=== PATIENT | female | born 1950 | race Caucasian/White ===

== ENCOUNTER 2019-06-21 09:30 | Outpatient (CLI) | payer MEDICARE, BC, SELFPAY ==
--- NOTE | ~2019-06-21 | XR_ITS ---
EXAMINATION: XR abdomen/kub 1V INDICATION: History of kidney stones TECHNIQUE: Supine views of the abdomen were obtained on 2 radiographs. COMPARISON: 03/01/2019 FINDINGS: No definite urinary tract calculi are identified. The bowel gas pattern is normal. Surgical clips in the right upper quadrant are likely from prior cholecystectomy. There is moderate lumbar sp ondylosis. IMPRESSION: 1. No definite urinary tract calculi identified. Reviewed, dictated and finalized at location A. 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
== END 2019-06-21 09:31 | disposition home or self-care (01) ==
PROVIDERS: PCP Internal Medicine; Visit Provider Urology
DX: Z87.442 Personal history of urinary calculi (principal)
CPT/HCPCS: 74018

== ENCOUNTER 2019-10-13 09:58 | Outpatient (CLI) | payer MEDICARE, BC, SELFPAY ==
--- NOTE | ~2019-10-13 | CT_ITS ---
EXAMINATION: CT abdomen pelvis wo con DATE: 10/13/2019 11:14 INDICATION: Left flank pain. TECHNIQUE: Computed tomography (CT) of the abdomen and pelvis was performed without intravenous contr ast. Automated exposure control and iterative reconstruction technique were employed. The dose-length product was 775.50 mGy-cm. COMPARISON: None. FINDINGS: The visualized portions of the lung bases are clear without pneumonia or pleural effusion. The heart size is normal. No pericardial effusion. There is diffuse hepatic steatosis. There are vasquez ges of cholecystectomy. The spleen is normal. 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 The adrenal glands are normal. There is a 3 mm stone in right kidney. There is a 3. 6 cm cyst in left kidney. There is a 3 mm stone in left kidney. There are scattered diverticula in th e colon. There is fat stranding adjacent to the sigmoid colon, consistent with diverticulitis. There are no dilated loops of bowel. The appendix is normal. There are no pathologically enlarged lymph nod es. There is no free intraperitoneal fluid. There is severe lumbar spondylosis. Thoracolumbar dextroc urvature is noted. IMPRESSION: 1. Mild sigmoid diverticulitis. No perforation or abscess. 2. Small bilateral nonobstructing kidney stones. Reviewed, dictated and finalized at location A.
--- NOTE | ~2019-10-13 | XR_ITS ---
EXAMINATION: XR abdomen/kub 1V DATE: 10/13/2019 11:05 INDICATION: Acute flank pain. TECHNIQUE: A supine view of the abdomen on 2 radiographs was obtained. COMPARISON: CT abdomen and pelvis 10/13/2019 FINDINGS: There are no dilated loops of bowel. There is no visible urolithiasis. Surgical clips in th e right upper quadrant are likely from cholecystectomy. IMPRESSION: 1. No visible urolithiasis. Reviewed, dictated and finalized at location A. IMPRESSION: 1. No visible urolithiasis.
== END 2019-10-13 09:59 | disposition home or self-care (01) ==
LOC: ANHIMG 10:01
PROVIDERS: PCP Internal Medicine; Visit Provider Nurse Practitioner Adult Health
DX: K57.32 Diverticulitis of large intestine without perforation or abscess without bleeding (principal); N20.0 Calculus of kidney
CPT/HCPCS: 74018; 74176; 87086; 87088

== ENCOUNTER 2021-03-25 07:28 | Outpatient (CLI) | payer MEDICARE, BC, SELFPAY ==
--- NOTE | ~2021-03-25 | MR_ITS ---
EXAMINATION: MR lumbar spine wo con EXAM DATE: 03/25/2021 08:38 INDICATION: Low back pain. TECHNIQUE: Multi-sequential, multiplanar MR images of the lumbar spine were obtained without contrast . Sagittal T1, T2, T2 fat saturation images. Axial T2 weighted images. There is no prior study for comparison. FINDINGS: Mild thoracolumbar dextroscoliosis, lumbar levoscoliosis. There is moderate to severe disc disease L2-3 and L3-4, moderate at L1-2 and L4-5. The conus medullaris terminates at the L1 level and has normal signal intensity and morphology. There is 2 mm retrolisthesis L2 on L3, 4 mm retrolisthe sis L3 on L4. There is 3.8 cm cyst in the lower pole of the left kidney. Level by level evaluation: T12-L1: There is a mild to moderate diffuse disc bulge. Facet arthropathy: Mild. Neural foraminal stenosis: Mild to moderate left. Central canal stenosis: Minimal. L1-L2: There is a mild diffuse disc bulge. Facet arthropathy: Mild. Neural foraminal stenosis: Mild bilateral. Central canal stenosis: Mild. L2-L3: There is a mild to moderate diffuse disc bulge. Facet arthropathy: Moderate right, mild to moderate left. Neural foraminal stenosis: Moderate right, mild to moderate left. Central canal stenosis: Mild to moderate. L3-L4: There is a mild to moderate diffuse disc bulge. Facet arthropathy: Moderate. Neural foraminal stenosis: Moderate right, mild to moderate left. Central canal stenosis: Mild to moderate. L4-L5: There is a mild to moderate diffuse disc bulge. Facet arthropathy: Moderate bilateral. Neural foraminal stenosis: Moderate right, minimal left. Central canal stenosis: Mild. L5-S1: There is a mild diffuse disc bulge. Facet arthropathy: Severe. Neural foraminal stenosis: Mild to moderate left, mild right. Central canal stenosis: Mild. IMPRESSION: 1. L2-L4 moderate to severe disc disease. 2. Mid and lower cervical predominant arthropathy. Reviewed, dictated and finalized at location A. 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
== END 2021-03-25 07:29 | disposition home or self-care (01) ==
LOC: ANHIMG 07:36
PROVIDERS: PCP Internal Medicine; Visit Provider Nurse Practitioner Adult Health
DX: M47.815 Spondylosis without myelopathy or radiculopathy, thoracolumbar region (principal); M48.05 Spinal stenosis, thoracolumbar region; M47.817 Spondylosis without myelopathy or radiculopathy, lumbosacral region; M48.07 Spinal stenosis, lumbosacral region
CPT/HCPCS: 72148

== ENCOUNTER 2022-01-16 10:55 | Outpatient (CLI) | payer MEDICARE, BC, SELFPAY ==
--- NOTE | ~2022-01-16 | CT_ITS ---
EXAMINATION: CT abdomen pelvis wo con DATE: 01/16/2022 11:50 INDICATION: Bilateral flank pain. Bilateral kidney stones. TECHNIQUE: Computed tomography (CT) of the abdomen and pelvis was performed without intravenous contr ast. Automated exposure control and iterative reconstruction technique were employed. The dose-length product was 922.30 mGy-cm. COMPARISON: CT abdomen and pelvis 10/13/2019 FINDINGS: The visualized portions of the lung bases demonstrate mild atelectasis. No pleural effusion . The heart size is normal. There are coronary artery calcifications. No pericardial effusion. The li ghazala and spleen are normal. There are changes of cholecystectomy. Calcifications in the pancreas are c onsistent with chronic pancreatitis. The adrenal glands and right kidney are normal. There are cysts in left kidney measuring up to 3.9 cm. There are 5 mm and 1 mm stones in left kidney. There is divert iculosis of the colon without evidence of diverticulitis. The appendix is normal. There are no dilate d loops of bowel. There are no pathologically enlarged lymph nodes. There is no free intraperitoneal fluid. There is severe lumbar spondylosis. Thoracolumbar dextroscoliosis is noted. IMPRESSION: 1. Nonobstructing left kidney stones. Reviewed, dictated and finalized at location A.
--- NOTE | ~2022-01-16 | XR_ITS ---
EXAMINATION: XR abdomen/kub 1V DATE: 01/16/2022 11:27 INDICATION: Bilateral kidney stones. TECHNIQUE: A supine view of the abdomen on 2 radiographs was obtained. COMPARISON: CT abdomen and pelvis 10/13/2019 FINDINGS: There are no dilated loops of bowel. There is a 3 mm stone in left kidney. Surgical clips i n the right upper quadrant are likely from cholecystectomy. IMPRESSION: 1. 3 mm stone in left kidney. Reviewed, dictated and finalized at location A.
== END 2022-01-16 10:56 | disposition home or self-care (01) ==
PROVIDERS: PCP Physician Assistant Medical; Visit Provider Nurse Practitioner Adult Health
DX: N20.0 Calculus of kidney (principal)
CPT/HCPCS: 74018; 74176